=== PATIENT | female | born 1970 | race Hispanic/Latino ===

== ENCOUNTER 2022-10-12 10:43 | Outpatient (RCR) | payer BC | END 2022-11-08 | LOC: PT 10:43 | PROVIDERS: ATTEND Specialist | DX: M17.11 Unilateral primary osteoarthritis, right knee (principal); S83.261D Peripheral tear of lateral meniscus, current injury, right knee, subsequent encounter; S83.221D Peripheral tear of medial meniscus, current injury, right knee, subsequent encounter ==

== ENCOUNTER 2025-05-04 12:50 | Emergency (ER) | payer OTHER ==
[~2025-05-04] VITALS: Ht 167.6 cm; Wt 110.8 kg
[2025-05-04 12:55] VITALS: PULSE 72; RESP 16; TEMP 98.2; O2SAT 96
[2025-05-04] MEDS ORDERED: KETOROLAC TROMETHAMINE 30 MG/ML VIAL ONE (13:15)
[2025-05-04] MEDS ORDERED: CYCLOBENZAPRINE10 MG PO (13:15)
[2025-05-04] MEDS: KETOROLAC TROMETHAMINE 30 MG/ML VIAL IM STA (13:17)
== END 2025-05-04 13:21 | disposition home or self-care (01) ==
LOC: FSED 13:12
DX: M54.50 Low back pain, unspecified (principal); Z86.79 Personal history of other diseases of the circulatory system
CPT/HCPCS: 99284; J1885